=== PATIENT | female | born 1960 | race Caucasian/White ===

== ENCOUNTER 2023-08-21 17:50 | Emergency (ER) | payer OTHER ==
[2023-08-21 18:02] VITALS: BP 192/83; PULSE 79; RESP 18; TEMP 97.7; BMI 30.4
[2023-08-21] MEDS ORDERED: ACETAMINOPHEN 500 MG TABLET (FP) PO ONE (20:02)
[2023-08-21] MEDS ORDERED: LIDOCAINE 4% PATCH TP ONE ×2 (20:03→20:33)
[2023-08-21] MEDS ORDERED: ACETAMINOPHEN 325 MG TABLET (FP) ONE (20:33)
[2023-08-21] MEDS ORDERED: LIDOCAINE PATCH REMOVAL MC ONE (22:00)
[2023-08-21] MEDS ORDERED: ONDANSETRON 4 MG/2 ML VIAL IVPUSH ONE (22:13)
[2023-08-21] MEDS ORDERED: morphine CARPU-JECT 4 MG/1 ML DISP.SYRIN IVPUSH ONE (22:14)
[2023-08-21] MEDS ORDERED: SODIUM CHLORIDE 0.9% 500 ML INFUS.BAG IV ONE (22:15)
[2023-08-21] MEDS ORDERED: morphine SULFATE 4 MG/ML VIAL ONE (22:30)
[2023-08-21] MEDS ORDERED: ONDANSETRON 4 MG/2 ML VIAL ONE (22:30)
[2023-08-21 23:15] LABS: BASO % 0.9 % (0-2.0); HEMATOCRIT 41.8 % (32.4-45.2); HEMOGLOBIN 14.2 GM/dL (10.7-15.3); LYMPH % 42.1 % (8-40); MEAN CELL VOLUME 85.4 fl (80-96); MONO % 7.8 % (3.8-10.2); NEUT % 44.2 % (42.8-82.8); PLATELET COUNT 258 10^3/uL (134-434); RDW 13.4 % (11.6-15.6); WHITE BLOOD COUNT 8.5 K/mm3 (4.0-10.0)
[2023-08-21 23:17] LABS: EPI CELLS 18 /uL (0-25.1); HYALINE CASTS 0 /uL (0-3.1); URINE APPEARANCE CLEAR; URINE BACTERIA 79 /uL (0-1359); URINE BILIRUBIN NEGATIVE (NEGATIVE); URINE COLOR YELLOW; URINE GLUCOSE (UA) NEGATIVE (NEGATIVE); URINE KETONE NEGATIVE (NEGATIVE); URINE LEUK ESTERASE 2+ (NEGATIVE); URINE NITRITE NEGATIVE (NEGATIVE); URINE PROTEIN NEGATIVE (NEGATIVE); URINE RBC 34 /uL (0-23.9); URINE UROBILINOGEN 0.2 mg/dL (0.2-1.0); URINE WBC 74 /uL (0-25.8)
[2023-08-21 23:35] LABS: POTASSIUM 4.7 mmol/L (3.5-5.1)
[2023-08-21 23:37] LABS: CALCIUM 9.9 mg/dL (8.5-10.1)
[2023-08-21 23:38] LABS: ALBUMIN 3.7 g/dl (3.4-5.0); BLOOD UREA NITROGEN 12.3 mg/dL (7-18)
[2023-08-21 23:41] LABS: CREATININE 0.5 mg/dL (0.55-1.3)
[2023-08-21 23:42] LABS: BILIRUBIN,TOTAL 0.4 mg/dL (0.2-1); TOT PROT 8.5 g/dl (6.4-8.2)
[2023-08-22] MEDS ORDERED: KETOROLAC TROMETHAMINE 15 MG/ML VIAL ONE (01:15)
== END 2023-08-22 01:27 | disposition home or self-care (01) ==
LOC: JER 17:50
PROC: 3E033NZ Introduction of Analgesics, Hypnotics, Sedatives into Peripheral Vein, Percutaneous Approach (ICD-10-PCS; principal; 2023-08-21)
PROC: 3E033GC Introduction of Other Therapeutic Substance into Peripheral Vein, Percutaneous Approach (ICD-10-PCS; 2023-08-21)
DX: R07.81 Pleurodynia (principal)
CPT/HCPCS: 36415; 71046-TC-FY; 71101-TC-RT-FY; 71250-TC; 74176-TC; 80053; 81003; 83690; 84484; 85025; 87077; 87086; 93005; 93010; 99285-25